=== PATIENT | male | born 1965 | race Two or more races ===

== ENCOUNTER 2024-08-15 10:53 | Inpatient (IN) | payer MEDICARE, MEDICAID ==
[~2024-08-15] VITALS: Ht 175.3 cm; Wt 151.6 kg
--- NOTE | 2024-08-15 11:56 | DVH ---
Procedure: XY CHEST PORTABLE 08/15/2024 11:31 AM Indication: sepsis Comparison: None TECHNIQUE: XY CHEST PORTABLE FINDINGS: Medical devices: None. Cardiomediastinal: The heart is normal in size. Pulmonary vasculature is within normal limits. Athero sclerotic calcification of the aortic arch noted. Lungs: No focal pulmonary opacity is seen. The costophrenic angles are clear. No pneumothorax. Bones/soft tissues: No acute abnormality is noted. IMPRESSION: 1. No acute cardiopulmonary disease.
[2024-08-15 12:03] LABS: Basophils # (auto) 0 10 ^3/uL (0-0.2); Basophils % (auto) 0.4 % (0.0-2.0); Eosinophils # (auto) 0.2 10 ^3/uL (0-0.8); Eosinophils % (auto) 2.4 % (0.0-7.0); Hematocrit 50.8 % (41.0-53.0); Hemoglobin 17.6 g/dL (13.5-17.5); Lymphocytes # (auto) 1.4 10 ^3/uL (0.4-5.4); Lymphocytes % (auto) 17.1 % (10.0-50.0); Mean Corpuscular Hemoglobin 29.5 pg (28.0-32.0); Mean Corpuscular Hgb Conc. 34.6 g/dL (32.0-36.0); Mean Corpuscular Volume 85.4 fL (80.0-100.0); Monocytes # (auto) 0.6 10 ^3/uL (0-1.3); Neutrophils # (auto) 5.8 10 ^3/uL (1.6-8.6); Neutrophils % (auto) 73.1 % (37.0-80.0); Nucleated Red Blood Cells % 0.1 %; Platelet Count (auto) 261 10^3/uL (140-450); Red Blood Cells 5.96 10^6/uL (4.5-5.90); Red Cell Distribution Width 14.1 % (11.8-14.3)
--- NOTE | 2024-08-15 12:03 | ED.PDOC ---
History of Present Illness HPI Comments 59 year old male presents to the ED with a chief complaint of wound check onset 2 weeks. Patient states he noticed wound to RT foot about 2 weeks ago, growing, red and swollen. Patient has home health nurse visit every 2 weeks, was advised to come to ED. Denies chest pain, shortness of breath, dizziness, nausea, vomiting, fever. No other symptoms or modifying factors present at this time. Chief Complaint: Wound Check Time Seen by MD: 11:20 Primary Care Provider: JESIKA Chambers Notes: Medications, Allergies Allergies: Coded Allergies: NO KNOWN ALLERGIES (Unverified , 08/15/24) Information Source: Patient, Relative Mode of Arrival: Ambulatory Severity: Moderate Timing: Weeks Duration: Since onset Prehospital treatment: None Family History Family History: Reviewed,noncontributory to illness, No family hx of Cancer, No family hx of DM, No family hx of Heart kristine, No family hx of HTN, No family hx ofKidney kristine, No family hx of Liver kristine, No family hx of Lung kristine, No family hx of Stroke Social History Smoker: Non-Smoker Alcohol: Denies ETOH Use Drugs: Denies Drug Use, Heroin Constitutional: denies: chills, diaphoresis, fatigue, fever, malaise, sweats, weakness, others EENTM: denies: blurred vision, double vision, ear bleeding, ear discharge, ear drainage, ear pain, ear ringing, eye pain, eye redness, hearing loss, mouth pain, mouth swelling, nasal discharge, nose bleeding, nose congestion, nose pain, photophobia, tearing, throat pain, throat swelling, voice changes, others Respiratory: denies: cough, hemoptysis, orthopnea, SOB at rest, shortness of breath, SOB with excertion, stridor, wheezing, others Cardiovascular: denies: chest pain, dizzy spells, diaphoresis, Dyspnea on exertion, edema, irregular heart beat, left arm pain, lightheadedness, palpitati ons, PND, syncope, others Gastrointestinal: denies: abdomen distended, abdominal pain, blood streaked bowels, constipated, diarrhea, dysphagia, difficulty swallowing, hematemesis, melena, nausea, poor appetite, poor fluid intake, rectal bleeding, rectal pain, vomiting, others Genitourinary: denies: burning, dysuria, flank pain, frequency, hematuria, incontinence, penile discharge, penile sore, pain, testicle pain, testicle swelling, urgency, others Neurological: denies: dizziness, fainting, headache, left sided numbness, left sided weakness, numbness, paresthesia, pre-existing deficit, right sided numbness, right sided weakness, seizure, speech problems, tingling, tremors, weakness, others Musculoskeletal: denies: back pain, gout, joint pain, joint swelling, muscle pain, muscle stiffness, neck pain, others Integumetry: reports: wounds (RT foot); denies: bruises, change in color, c hange in hair/nails, dryness, laceration, lesions, lumps, rash, others Allergic/Immunocompromised: denies: Difficulty Healing, Frequent Infections, Hives, Itching, others Hematologic/Lymphatic: denies: anemia, blood clots, easy bleeding, easy bruising, swollen glands, others Endocrine: denies: excessive hunger, excessive sweating, excessive thirst, excessive urination, flushing, intolerance to cold, intolerance to heat, unexplained weight gain, unexplained weight loss, others Psychiatric: denies: anxiety, bipolar disorder, depression, hopeless, panic disorder, schizophrenia, sleepless, suicidal, others All Other Systems: Reviewed and Negative Physical Exam General Appearance: No Apparent Distress, Normal HEENT: Normal ENT Inspection, Pharynx Normal, TMs Normal Neck: Full Range of Motion, Non-Tender, Normal, Normal Inspection Respiratory: Chest Non-Tender, Lungs Clear, No Accessory Muscle Use, No Respiratory Distress, Normal Breath Sounds Cardiovascular: No Edema, No JVD, No Murmur, No Gallop, Normal Peripheral Pulses, Regular Rate/Rhythm Breast Exam: Deferred Gastrointestinal: No Organomegaly, Non Tender, No Pulsatile Mass, Normal Bowel Sounds, Soft Genitalia: Deferred Pelvic: Deferred Rectal: Deferred Extremities: No calf tenderness, Normal capillary refill, Normal inspection, N ormal range of motion, Non-tender, No pedal edema Musculoskeletal : Apperance: Normal Neurologic: Alert, automobile brakes bonder II-XII nml as Tested, No Motor Deficits, Normal Affect, Normal Mood, No Sensory Deficits Cerebellar Function: Normal Reflexes: Normal Skin: Dry, Normal Color, Warm Lymphatic: No Adenopathy Was a procedure done? Was a procedure done?: No Differential Dx Considerations may include: Cellulitis, infectious etiology, electrolyte abnormality, sepsis X-Ray, Labs, Meds, VS Vital Signs Date Time Temp Pulse Resp B/P (MAP) Pulse Ox O2 Delivery O2 Flow Rate FiO2 08/15/24 12:15 81 14 95 Room Air* 0 21 08/15/24 11:59 98.0 80 18 155/93 (113) 96 98.0 08/15/24 11:13 98.4 66 16 95 98.4 08/15/24 11:13 66 18 95 Room Air 08/15/24 11:06 98.5 89 20 133/102 (112) 96 98.5 Lab Test 08/15/24 11:40 Range/Units White Blood Count 8.0 4.4-10.8 10^3/uL Red Blood Count 5.96 H 4.5-5.90 10^6/uL Hemoglobin 17.6 H 13.5-17.5 g/dL Hematocrit 50.8 41.0-53.0 % Mean Corpuscular Volume 85.4 80.0-100.0 fL Mean Corpuscular Hemoglobin 29.5 28.0-32.0 pg Mean Corpuscular Hemoglobin Concent 34.6 32.0-36.0 g/dL Red Cell Distribution Width 14.1 11.8-14.3 % Platelet Count 261 140-450 10^3/uL Mean Platelet Volume 8.0 6.9-10.8 fL Neutrophils (%) (Auto) 73.1 37.0-80.0 % Lymphocytes (%) (Auto) 17.1 10.0-50.0 % Monocytes (%) (Auto) 7.0 0.0-12.0 % Eosinophils (%) (Auto) 2.4 0.0-7.0 % Basophils (%) (Auto) 0.4 0.0-2.0 % Neutrophils # (Auto) 5.8 1.6-8.6 10 ^3/uL Lymphocytes # (Auto) 1.4 0.4-5.4 10 ^3/uL Monocytes # (Auto) 0.6 0-1.3 10 ^3/uL Eosinophils # (Auto) 0.2 0-0.8 10 ^3/uL Basophils # (Auto) 0 0-0.2 10 ^3/uL Nucleated Red Blood Cells 0.1 % Sodium Level 137 136-145 mmol/L Potassium Level 3.0 L 3.5-5.1 mmol/L Chloride Level 102 98-107 mmol/L Carbon Dioxide Level 26 20-31 mmol/L Anion Gap 9 5-15 Blood Urea Nitrogen 11 9-23 mg/dL Creatinine 0.93 0.700-1.30 mg/dL Glomerular Filtration Rate Calc 93 >90 mL/min BUN/Creatinine Ratio 11.8 10.0-20.0 Serum Glucose 103 74-106 mg/dL Lactic Acid Level 1.5 0.4-2.0 mmol/L Calcium Level 9.4 8.7-10.4 mg/dL Total Bilirubin 0.7 0.2-1.0 mg/dL Aspartate Amino Transferase (AST) 35 13-40 U/L Alanine Aminotransferase (ALT) 28 7-40 U/L Alkaline Phosphatase 100 46-116 U/L Troponin I High Sensitivity 7 </=54 ng/L Total Protein 8.2 5.7-8.2 g/dL Albumin 4.1 3.2-4.8 g/dL Current Medications Medications (Trade) Dose Ordered Sig/Carolee Route Start Time Stop Time Status Last Admin Sodium Chloride 3,000 ml @ 1,000 mls/hr Q3H ONCE IV 08/15/24 11:30 08/15/24 14:29 08/15/24 12:05 Ondansetron HCl (Zofran) 4 mg ONCE ONCE IV 08/15/24 11:30 08/15/24 11:31 DC 08/15/24 12:05 Vancomycin HCl 200 ml @ 200 mls/hr ONCE ONCE IV 08/15/24 11:30 08/15/24 12:29 DC 08/15/24 12:06 Cefepime HCl 50 ml @ 12.5 mls/hr ONCE ONCE IV 08/15/24 11:30 08/15/24 15:29 08/15/24 12:[address] [address] Ph: [phone] DIAGNOSTIC IMAGING Diagnostic Imaging Report : [id number] Signed PATIENT: REYES GONSALVESACCT: [id number] UNIT: [id number] : 1965 LOC: ER ROOM / BED: / AGE / SEX: 59 / M ADM STATUS: REG ER SERVICE 1122 ORDERING PHYSICIAN: ANGELA HERNÁNDEZ MD PROCEDURE(s): RFOOT - R FOOT 3 VIEW XRAY REASON: right foot pain ORDER NUMBER(s): [id number], ACCESSION NUMBER(s): [id number] CLINICAL INFORMATION: 59 years old, Male; right foot pain. TECHNIQUE: 3 views of the right foot were obtained. COMPARISON: None FINDINGS: No acute fracture or dislocation. Moderate arthritic changes of the 1st MTP joint with joint space narrowing and subchondral sclerosis. Likely prominent marginal osteophyte of the medial aspect of the base of the proximal phalanx. Prominent ossification along the expected course of the plantar fascia extending near its calcaneal attachment. Diffuse soft tissue swelling in the right foot. Adjacent soft tissues are unremarkable. IMPRESSION: 1. No evidence of acute bony abnormality. 2. Nonacute findings as described above. 3. Diffuse soft tissue swelling in the right foot. ATED BY: EZEQUIEL KAY DO DICTATED DATE/TIME: 08/15/24 120 SIGNED BY: EZEQUIEL KAY DO SIGNED DATE/TIME: 08/15/24 120 CC: [place] [address] Ph: [phone] DIAGNOSTIC IMAGING Diagnostic Imaging Report : [id number] Signed PATIENT: REYES GONSALVESACCT: [id number] UNIT: [id number] : 1965 LOC: ER ROOM / BED: / AGE / SEX: 59 / M ADM STATUS: REG ER SERVICE 1122 ORDERING PHYSICIAN: ANGELA HERNÁNDEZ MD PROCEDURE(s): CXRP - CHEST PORTABLE REASON: sepsis ORDER NUMBER(s): [id number], ACCESSION NUMBER(s): [id number] Procedure: XY CHEST PORTABLE 08/15/2024 11:31 AM Indication: sepsis Comparison: None TECHNIQUE: XY CHEST PORTABLE FINDINGS: Medical devices: None. Cardiomediastinal: The heart is normal in size. Pulmonary vasculature is within normal limits. Atherosclerotic calcification of the aortic arch noted. Lungs: No focal pulmonary opacity is seen. The costophrenic angles are clear. No pneumothorax. Bones/soft tissues: No acute abnormality is noted. IMPRESSION: 1. No acute cardiopulmonary disease. ATED BY: TAMMY GIRON MD DICTATED DATE/TIME: 08/15/24 1154 SIGNED BY: TAMMY GIRON MD SIGNED DATE/TIME: 08/15/24 1154 CC: Time of 1ST Reevaluation: 11:50 Reevaluation 1ST: Unchanged Patient Education/Counseling: Diagnosis, Treatment, Prognosis Family Education/Counseling: Diagnosis, Treatment, Prognosis Additional Information The following tests were ordered, and results were reviewed by me: XY R FOOT 3 VIEW, CBC, CMP, LA W/ REFLEX, TROP -x3, UA, BLOOD CULTURE, XY CHEST Additional Information was gathered from interviewing the following independent historians: daughter I reviewed and agreed with the following test results read by other providers: XY CHEST I discussed treatment and results with medical personnel and: patient, daughter Comprehensive systems review obtained and negative except for what is stated in the HPI. Departure 1 Departure Time of Disposition: 13:00 (Patient presents with a wound and cellulitis and concern for sepsis. Patient empirically started on antibiotics given IV fluids and we will admit patient for further workup and expert consult) Impression: Primary Impression: Wound of right foot Additional Impression: Cellulitis of right lower extremity Disposition: ADMITTED INPATIENT Admit to: Med Surg Condition: Serious Critical Care Note Critical Care Time?: Yes Critical care comment: Concern for sepsis Authorized and Performed by: Angela Hernández MD Total critical care time: Approximately 36 minutes Due to a high probability of clinically significant, life threatening deterioration, the patient required my highest level of preparedness to intervene emergently and I personally spent this critical care time directly and personally managing the patient. This critical care time included obtaining a history; examining the patient; pulse oximetry; ordering and review of studies; arranging urgent treatment with development of a management plan; evaluation of patient's response to treatment; frequent reassessment; and, discussions with other providers. This critical care time was performed to assess and manage the high probability of imminent, life-threatening deterioration that could result in multi-organ failure. It was exclusive of separately billable procedures and treating other patients and teaching time. Please see my other sections and the rest of the note for further information on patient assessment and treatment. Stability Stability form required: No I personally scribed for ANGELA HERNÁNDEZ MD ([facility] on 08/15/24 at 12:03. Electronically submitted by Laurie Alcantara ([email or web address]). I personally scribed for ANGELA HERNÁNEDZ MD ([facility] on 08/15/24 at 12:04. Electronically submitted by Laurie Alcantara ([email or web address]). I personally scribed for ANGELA HERNÁNDEZ MD ([facility] on 08/15/24 at 12:55. Electronically submitted by Laurie Alcantara ([email or web address]). ANGELA HERNÁNDEZ MD August 15, 2024 12:03
--- NOTE | 2024-08-15 12:03 | DVH ---
CLINICAL INFORMATION: 59 years old, Male; right foot pain. TECHNIQUE: 3 views of the right foot were obtained. COMPARISON: None FINDINGS: No acute fracture or dislocation. Moderate arthritic changes of the 1st MTP joint with join t space narrowing and subchondral sclerosis. Likely prominent marginal osteophyte of the medial aspec t of the base of the proximal phalanx. Prominent ossification along the expected course of the planta r fascia extending near its calcaneal attachment. Diffuse soft tissue swelling in the right foot. Adj acent soft tissues are unremarkable. IMPRESSION: 1. No evidence of acute bony abnormality. 2. Nonacute findings as described above. 3. Diffuse soft tissue swelling in the right foot.
[2024-08-15] MEDS: ONDANSETRON HCL 4 MG/2 ML VIAL IV ONE ×2 (12:05→13:55)
[2024-08-15] MEDS: SODIUM CHLORIDE 0.9% 3,000 ML IV ONE (12:05)
[2024-08-15] MEDS: VANCOMYCIN 1GM/200ML PM 200 ML IV ONE (12:06)
[2024-08-15] MEDS: CEFEPIME 2GM/50ML NS 50 ML IV ONE (12:06)
[2024-08-15 12:15] VITALS: PULSE 81; RESP 14; O2SAT 95
[2024-08-15 12:17] LABS: Alanine Aminotransferase 28 U/L (7-40); Albumin 4.1 g/dL (3.2-4.8); Alkaline Phosphatase 100 U/L (46-116); Anion Gap 9 (5-15); Aspartate Aminotransferase 35 U/L (13-40); BUN/Creatinine Ratio 11.8 (10.0-20.0); Blood Urea Nitrogen 11 mg/dL (9-23); Calcium 9.4 mg/dL (8.7-10.4); Carbon Dioxide 26 mmol/L (20-31); Chloride 102 mmol/L (98-107); Glucose 103 mg/dL (74-106); Sodium 137 mmol/L (136-145); Total Protein 8.2 g/dL (5.7-8.2)
[2024-08-15 12:18] LABS: Bilirubin, Total 0.7 mg/dL (0.2-1.0)
[2024-08-15] MEDS: MORPHINE SULFATE 4 MG/ML SYR/VIAL IV ONE (13:56)
[2024-08-15 14:26] LABS: Urine Bacteria None Seen /hpf (None Seen)
[2024-08-15 14:27] LABS: Urine Blood Negative /uL (Negative); Urine Clarity Clear (Clear); Urine Color Light-Yellow (Yellow); Urine Protein, UAD Negative (Negative); Urine Specific Gravity 1.014 (1.001-1.035); Urine Squamous Epithelial Cell None Seen /hpf (<5); Urine Urobilinogen Normal (Negative); Urine WBC 1 /HPF (0-3); Urine pH 6.5 (5.0-9.0)
[2024-08-15 21:56] LABS: Magnesium 2.1 mg/dL (1.6-2.6)
[2024-08-15 21:57] LABS: Blood Alcohol < 3.0 mg/dL (<10)
[2024-08-15] MEDS ORDERED: VANCOMYCIN PER PHARMACY 0 MG IV SCH (22:00)
[2024-08-15] MEDS ORDERED: cefTRIAXone 1GM/50ML D5W 50 ML IV ONE ×2 (22:00→23:00)
--- NOTE | 2024-08-15 22:18 | DVH ---
Bilateral lower extremity venous duplex Clinical History: BL Leg swelling Comparison: None Technique: Duplex Doppler evaluation of the deep venous systems of both lower extremities from the common femora l veins to the popliteal veins including color Doppler and spectral/pulsed waveform analysis was perf ormed. Findings: RIGHT SIDE: The common femoral vein demonstrates appropriate compressibility and waveform variability. There is compressibility/patency of the great saphenous vein at the proximal thigh. The femoral vein demonstrates appropriate compressibility and waveform variability. The deep femoral vein demonstrates appropriate compressibility and waveform variability. The popliteal vein demonstrates appropriate compressibility and waveform variability. There is normal compressibility at the tibioperoneal trunk. LEFT SIDE: The common femoral vein demonstrates appropriate compressibility and waveform variability. There is compressibility/patency of the great saphenous vein at the proximal thigh. The femoral vein demonstrates appropriate compressibility and waveform variability. The deep femoral vein demonstrates appropriate compressibility and waveform variability. The popliteal vein demonstrates appropriate compressibility and waveform variability. There is normal compressibility at the tibioperoneal trunk. Impression: 1. No right or left femoropopliteal venous thrombosis.
[2024-08-15 22:23] LABS: Opiate Scree,Urine Neg (NEGATIVE)
[2024-08-15 22:27] LABS: Amphetamine Screen, Urine Neg (NEGATIVE); Barbiturate Scree,Urine Neg (NEGATIVE); Benzodiazephine Screen, Urine Neg (NEGATIVE); Cannabinoid Screen, Urine Neg (NEGATIVE); Cocaine Screen, Urine Neg (NEGATIVE); Phencyclidine Screen, Urine Neg (NEGATIVE)
[2024-08-15] MEDS: SODIUM CHLOR 0.9% PF (SALINE LOCK) 10ML VIAL/SYR IV SCH (22:29)
[2024-08-15] MEDS: POTASSIUM EFFERVESENT TAB 25 MEQ PO ONE (22:30)
--- NOTE | 2024-08-15 22:30 | DVHHP2 ---
History of Present Illness History of Present Illness Patient is 59 years old male with a past history of hypertension, left lower leg asthma came with a right foot wound for 2 weeks. Patient reported he noted right foot ulcer 2 weeks before which got worse and his home health nurse for left foot wound ask him to come to the ER. Red swollen warm tender to touch. Reported pain in the right foot attempts 10/10. On Further discussion patient reported he has left leg swelling with ulcer for last 1 year for which he has a home health nurse come check on him twice a week. Patient denied any chest pain or shortness of breath dysuria, cough or diarrhea. Lab workup revealed potassium 3.0, hemoglobin 70.6. Urinalysis negative for UTI, CXR negative for acute cardiopulmonary disease, right foot x-ray diffuse soft tissue swelling. Doppler study of the bilateral lower extremity negative for DVT. UDS negative. urinalysis negative for UTI. Past Medical History Hypertension Past Surgical History None Family History None Past Social History Denies smoking, ex alcoholic, ex substance abuser. Meds amlodipine 10 mg p.o. daily, losartan-hydrochlorothiazide 50 x 12.5, carvedilol 6.25 mg p.o. b.i.d., folic acid, potassium supplement Review of Systems Review of Systems Allergy -NKDA Patient was seen today at the bedside. Cardiovascular- deny acute chest pain or shortness of breath or cough or palpitation Respiratory denies cough or short of breath or wheezing Gastrointestinal- denies any rectal bleeding, nausea or vomiting Neurological- denies acute dysarthria, dysphagia, change in vision Psychiatry- denies depression or SI or HI Skin- denies acute rash or purpura Allergies: Coded Allergies: NO KNOWN ALLERGIES (Unverified , 08/15/24) Medications Current Medications Medications Dose Ordered Sig/Carolee Route Start Time Stop Time Status Last Admin Dose Admin Sodium Chloride 10 ml Q8HR IV 08/15/24 22:00 Enoxaparin Sodium 40 mg DAILY SC 08/16/24 10:00 Acetaminophen 650 mg Q6HP PRN PO 08/15/24 21:45 Ceftriaxone Sodium 50 ml @ 100 mls/hr DAILY@09 IV 08/16/24 09:00 Vancomycin HCl 0 ml @ 0 mls/hr UD IV 08/15/24 22:00 UNV Exam Vital Signs Vital Signs Date Time Temp Pulse Resp B/P (MAP) Pulse Ox O2 Delivery O2 Flow Rate FiO2 08/15/24 19:36 97.9 75 20 126/83 (97) 96 97.9 08/15/24 12:15 Room Air* 0 21 Exam General examination- , alert, oriented, convert HEENT- PEERLA, no acute nasal discharge Cardiovascular- S1-S2 audible, rate and rhythm regular, no murmur Respiratory- CTAB, no wheeze or rhonchi Gastrointestinal-nontender, bowel sound+. Nondistended Musculoskeletal-no acute joint swelling or tenderness or redness Lower extremity- bilateral lower extremity swelling, stage IV ulcer on the dorsum of Right foot and Ulcer on theback of left foot Neurological- cranial nerves intact, no acute dysarthria or dysphagia Psychiatry- denies depression or SI or HI Skin- no acute rash or purpura Labs/Xrays Labs Test 08/15/24 14:47 08/15/24 14:03 08/15/24 11:40 Range/Units Troponin I High Sensitivity 7 </=54 ng/L Urine Color Light-yellow Yellow Urine Clarity Clear Clear Urine pH 6.5 5.0-9.0 Urine Specific [place] 1.014 1.001-1.035 Urine Protein Negative Negative Urine Ketones Negative Negative Urine Blood Negative Negative /uL Urine Nitrite Negative Negative Urine Bilirubin Negative Negative Urine Urobilinogen Normal Negative mg/dL Urine Leukocyte Esterase Negative Negative /uL Urine RBC 3 0 - 3 /hpf Urine Microscopic WBC 1 0-3 /HPF Urine Squamous Epithelial Cells None seen <5 /hpf Urine Bacteria None seen None Seen /hpf Urine Glucose Normal Normal mg/dL Urine Opiates Screen Neg NEGATIVE Urine Fentanyl Screen Neg NEGATIVE Urine Barbiturates Screen Neg NEGATIVE Urine Phencyclidine Screen Neg NEGATIVE Urine Amphetamines Screen Neg NEGATIVE Urine Benzodiazepines Screen Neg NEGATIVE Urine Cocaine Screen Neg NEGATIVE Urine Cannabinoids Screen Neg NEGATIVE White Blood Count 8.0 4.4-10.8 10^3/uL Red Blood Count 5.96 H 4.5-5.90 10^6/uL Hemoglobin 17.6 H 13.5-17.5 g/dL Hematocrit 50.8 41.0-53.0 % Mean Corpuscular Volume 85.4 80.0-100.0 fL Mean Corpuscular Hemoglobin 29.5 28.0-32.0 pg Mean Corpuscular Hemoglobin Concent 34.6 32.0-36.0 g/dL Red Cell Distribution Width 14.1 11.8-14.3 % Platelet Count 261 140-450 10^3/uL Mean Platelet Volume 8.0 6.9-10.8 fL Neutrophils (%) (Auto) 73.1 37.0-80.0 % Lymphocytes (%) (Auto) 17.1 10.0-50.0 % Monocytes (%) (Auto) 7.0 0.0-12.0 % Eosinophils (%) (Auto) 2.4 0.0-7.0 % Basophils (%) (Auto) 0.4 0.0-2.0 % Neutrophils # (Auto) 5.8 1.6-8.6 10 ^3/uL Lymphocytes # (Auto) 1.4 0.4-5.4 10 ^3/uL Monocytes # (Auto) 0.6 0-1.3 10 ^3/uL Eosinophils # (Auto) 0.2 0-0.8 10 ^3/uL Basophils # (Auto) 0 0-0.2 10 ^3/uL Nucleated Red Blood Cells 0.1 % Sodium Level 137 136-145 mmol/L Potassium Level 3.0 L 3.5-5.1 mmol/L Chloride Level 102 98-107 mmol/L Carbon Dioxide Level 26 20-31 mmol/L Anion Gap 9 5-15 Blood Urea Nitrogen 11 9-23 mg/dL Creatinine 0.93 0.700-1.30 mg/dL Glomerular Filtration Rate Calc 93 >90 mL/min BUN/Creatinine Ratio 11.8 10.0-20.0 Serum Glucose 103 74-106 mg/dL Hemoglobin A1c 5.2 <5.7 % A1C Lactic Acid Level 1.5 0.4-2.0 mmol/L Calcium Level 9.4 8.7-10.4 mg/dL Magnesium Level 2.1 1.6-2.6 mg/dL Total Bilirubin 0.7 0.2-1.0 mg/dL Aspartate Amino Transferase (AST) 35 13-40 U/L Alanine Aminotransferase (ALT) 28 7-40 U/L Alkaline Phosphatase 100 46-116 U/L Total Protein 8.2 5.7-8.2 g/dL Albumin 4.1 3.2-4.8 g/dL Vitamin D 25-Hydroxy 20.6 L 30.0-100 ng/mL Thyroid Stimulating Hormone (TSH) 3.08 0.55-4.78 uIU/mL Plasma/Serum Blood Alcohol < 3.0 <10 mg/dL Assessment/Plan Assessment/Plan Assessment and plan Bilateral lower extremity cellulitis Bilateral lower extremity ulcer Rule out acute osteomyelitis Bilateral lower extremity swelling Hypertension Hypokalemia Vitamin-D deficiency Morbid Obesity UDS negative Urinalysis negative for UTI X-ray right foot -diffuse soft tissue swelling Plan Ordered CT scan of the right foot to rule out osteomyelitis Ordered clindamycin IV Losartan 50 mg p.o. daily Ordered supplemented potassium Ordered pain medication Ordered wound consult Ordered podiatry consult Ordered blood culture and wound culture Patient is counseled about the effect of obesity on health, weight reduction, healthy diet, physical activity Goals of care, Code status ; discussed with >15 minutes PUD prophylaxis: Pantoprazole DVT prophylaxis: Lovenox Plan discussed with Dr. Ceja , nursing staff, Total time spent on patient evaluation, chart review, assessment and plan, discussion discussion >35 minutes Plan discussed with: Patient, Other (RN) My Orders Orders - EZEQUIEL LOWE RESIDENT Procedure Category Date Status Time Admit ADMIT 08/15/24 Transmitted 21:35 Code Status CODE 08/15/24 Transmitted 21:35 Sodium Chloride Lock PHA 08/15/24 In Process (Saline Lock Ns) 22:00 Enoxaparin Sodium PHA 08/16/24 In Process (Lovenox) 10:00 Complete Blood Count LAB 08/16/24 Verified 04:00 Comprehensive LAB 08/16/24 Verified Metabolic Panel 04:00 Cardiac DIET 08/16/24 Transmitted Diet-2gna,Lofat,Lochol Breakfast Acetaminophen Tablet PHA 08/15/24 In Process (Tylenol Tablet) 21:45 Electrocardigram EKG 08/15/24 Logged 21:37 Bilat Lower Dvt US 08/15/24 Resulted 21:39 * Wound Consult CONS 08/15/24 Transmitted *Podiatry Consult CONS 08/15/24 Transmitted Musson([facility]) 21:41 Wound Culture W/ Gs LAURA 08/15/24 Logged 21:42 Sodium Chloride 0.9% PHA 08/15/24 In Process 21:45 Vitamin B12 LAB 08/15/24 In Process 21:45 Folate (Folic Acid) LAB 08/15/24 In Process 21:45 Ceftriaxone 1gm/50ml PHA 08/16/24 In Process D5w (Rocephin) 09:00 Vancomycin Per PHA 08/15/24 Pending Pharmacy 22:00 Vancomycin 1gm/200ml PHA 08/15/24 In Process Pm 22:00 Vancomycin 1gm/200ml PHA 08/16/24 In Process Pm 06:00 Ceftriaxone 1gm/50ml PHA 08/15/24 In Process D5w (Rocephin) 23:00 Date of Service: August 15, 2024 Billing Provider: UZAIR CEJA MD Common Visit Codes: 50889-[id number] INP/OBS CARE (HIGH) Secondary Visit Codes: 08516-[id number] CARE PLAN 30 MINUTES EZEQUIEL LOWE RESIDENT August 15, 2024 22:30
[2024-08-15 22:50] VITALS: PULSE 89; RESP 18; O2SAT 98
[2024-08-15 23:42] VITALS: BP 134/100; PULSE 85; RESP 16; TEMP 98.5; O2SAT 95
[2024-08-15 23:46] VITALS: BP 134/100; PULSE 85; PULSE 86; RESP 16; TEMP 98.5; O2SAT 95
[2024-08-16] VITALS (7 sets, daily range): BP systolic 116–153; BP diastolic 60–95; PULSE 51–94; RESP 18–20; TEMP 98.1–98.7; O2SAT 93–96
[2024-08-16] MEDS: CLINDAMYCIN 300MG IV 50 ML IV ONE (00:22)
[2024-08-16] MEDS: SODIUM CHLORIDE 0.9% 1,000 ML IV ONE (00:23)
[2024-08-16] MEDS: LOSARTAN POTASSIUM 50 MG TAB PO ONE (00:39)
[2024-08-16] MEDS: ACETAMINOPHEN 325 MG TAB PO PRN (00:50)
[2024-08-16] MEDS ORDERED: ACET-6 PO (01:13)
[2024-08-16] MEDS ORDERED: AMLO1TAB23 PO (01:13)
[2024-08-16] MEDS ORDERED: POTA-180 PO (01:13)
[2024-08-16] MEDS ORDERED: CARV6.2517 PO (01:13)
[2024-08-16] MEDS ORDERED: FOLI-119 PO (01:13)
[2024-08-16] MEDS ORDERED: LOSA100T33 (01:13)
[2024-08-16] MEDS: CLINDAMYCIN 300MG IV 50 ML IV SCH (06:09)
[2024-08-16 06:17] LABS: Basophils # (auto) 0.1 10 ^3/uL (0-0.2); Basophils % (auto) 0.8 % (0.0-2.0); Eosinophils # (auto) 0.4 10 ^3/uL (0-0.8); Eosinophils % (auto) 4.2 % (0.0-7.0); Hematocrit 45.8 % (41.0-53.0); Hemoglobin 15.6 g/dL (13.5-17.5); Lymphocytes # (auto) 1.4 10 ^3/uL (0.4-5.4); Lymphocytes % (auto) 16.9 % (10.0-50.0); Mean Corpuscular Hemoglobin 29.3 pg (28.0-32.0); Mean Corpuscular Hgb Conc. 34.2 g/dL (32.0-36.0); Mean Corpuscular Volume 85.9 fL (80.0-100.0); Monocytes # (auto) 0.7 10 ^3/uL (0-1.3); Neutrophils # (auto) 5.9 10 ^3/uL (1.6-8.6); Neutrophils % (auto) 70.1 % (37.0-80.0); Nucleated Red Blood Cells % 0.1 %; Platelet Count (auto) 221 10^3/uL (140-450); Red Blood Cells 5.33 10^6/uL (4.5-5.90); Red Cell Distribution Width 13.6 % (11.8-14.3); White Blood Cell 8.4 10^3/uL (4.4-10.8)
[2024-08-16] MEDS: PANTOPRAZOLE 40 MG TAB PO SCH (06:18)
[2024-08-16] MEDS: hydrALAZINE HCL 20 MG/ML VL IV ONE (06:18)
[2024-08-16 06:41] LABS: Alanine Aminotransferase 25 U/L (7-40); Albumin 3.4 g/dL (3.2-4.8); Alkaline Phosphatase 84 U/L (46-116); Anion Gap 10 (5-15); Aspartate Aminotransferase 35 U/L (13-40); BUN/Creatinine Ratio 12.9 (10.0-20.0); Blood Urea Nitrogen 13 mg/dL (9-23); Carbon Dioxide 28 mmol/L (20-31); Chloride 102 mmol/L (98-107); Glucose 95 mg/dL (74-106); Sodium 140 mmol/L (136-145); Total Protein 6.9 g/dL (5.7-8.2)
[2024-08-16 06:42] LABS: Bilirubin, Total 0.7 mg/dL (0.2-1.0)
[2024-08-16] MEDS ORDERED: VANCOMYCIN PER PHARMACY 0 MG IV SCH (06:45)
[2024-08-16] MEDS ORDERED: AMPICILLIN & SULBACTAM SODIUM 3 GM in SODIUM CHL 0.9% 100 ML IV SCH (06:45)
[2024-08-16 07:05] LABS: Calcium 8.5 mg/dL (8.7-10.4); Potassium 3.1 mmol/L (3.5-5.1)
--- NOTE | 2024-08-16 07:25 | DVHPN2 ---
Progress Note - Dictate Date Seen: August 16, 2024 Medical Necessity Reason Pt with a Central, PICC or Fol: No vital signs Vital Sign Date Time Temp Pulse Resp B/P (MAP) Pulse Ox O2 Delivery O2 Flow Rate FiO2 08/16/24 06:18 143/95 08/16/24 05:00 98.1 84 19 95 98.1 08/15/24 23:46 Room Air* 0 21 Total Intake and Output 08/15/24 08/15/24 08/16/24 15:00 23:00 07:00 Intake Total 770 ml Balance 770 ml medications Current Medications Medications Dose Ordered Sig/Carolee Route Start Time Stop Time Status Last Admin Dose Admin Sodium Chloride 10 ml Q8HR IV 08/15/24 22:00 08/16/24 06:09 10 ML Enoxaparin Sodium 40 mg DAILY SC 08/16/24 10:00 Acetaminophen 650 mg Q6HP PRN PO 08/15/24 21:45 08/16/24 00:50 650 MG Saccharomyces Boulardii 250 mg BID PO 08/16/24 10:00 Ergocalciferol 50,000 unit Q7D PO 08/16/24 10:00 Losartan Potassium 50 mg DAILY PO 08/17/24 10:00 Pantoprazole Sodium 40 mg DAILY@0600 PO 08/16/24 06:00 08/16/24 06:18 40 MG Ampicillin Sodium/ Sulbactam Sodium 3 gm/Sodium Chloride 100 ml @ 100 mls/hr Q6H IV 08/16/24 06:45 Vancomycin HCl 0 ml @ 0 mls/hr UD IV 08/16/24 06:45 UNV objective General Appearance: alert, no distress HEENT: EOMI, PERRLA, normal external inspect of ears, no icterus, no nasal drainage Neck: no carotid bruit, no jugular venous distention (JVD), no lymphadenopathy Chest: normal thorax Respiratory: clear to auscultation, normal air movement Cardiovascular: regular rate and rhythm, no diastolic murmur, no jugular venous distention (JVD), no rub, no systolic murmur Abdominal: soft, no hepatomegaly, no mass, no splenomegaly, no tenderness Genitourinary: grossly normal external Musculoskeletal: no joint tenderness, no swelling Extremities: normal pulses, no calf tenderness, no clubbing, no cyanosis, no edema Skin: no bruising, no jaundice, no rash Neurological: alert, No focal deficit laboratory and microbiology Laboratory Tests 08/16/24 05:09 Test 08/16/24 05:09 Range/Units Serum Glucose 95 74-106 mg/dL Problem List 1. Bilateral lower extremity cellulitis CT of right foot, podiatry consult, wound care consult, arterial ultrasound of bilateral lower extremities 2. Morbid obesity Diet education 3. Benign essential hypertension Cardiac diet, antihypertensives 4. Nonhealing right foot wound Wound care consult, podiatry consult Assessment/Plan Subjective: Patient is awake and alert. Objective: Patient was admitted for right foot wound. Denies any history of diabetes. Patient has cellulitis extending up to the knee. States wound has been non- healing for two years. Plan: Podiatry consult pending. Wound care consult for evaluation. Obtain arterial Doppler. Plan discussed with: Patient, Other MILA SHERWOOD NP August 16, 2024 07:25
--- NOTE | 2024-08-16 07:39 | DVH ---
CT CT R FOOT WO CONTRAST INDICATION: RULE OUT OSTEOMYELITIS EXAM DATE: 08/16/2024 07:00 AM COMPARISON: None RADIATION DOSE: CTDIvol: 7 mGy, DLP: 427 mGy*cm PROCEDURE: Helical CT images were obtained of the right foot without intravenous contrast. Sagittal and coronal reconstructions are provided. ADDITIONAL IMAGES: None FINDINGS: BONES: No fracture.Normal anatomic alignment.] JOINT SPACES: Maintained. No joint effusion. SOFT TISSUES: [id number] forefoot soft tissue edema. VESSELS: unremarkable. IMPRESSION: No osseous erosive changes to suggest for osteomylitis. [id number] forefoot soft tissue edema.
[2024-08-16] MEDS: ERGOCALCIFEROL 50,000 UNIT(1.25MG) CAP PO SCH (08:36)
[2024-08-16] MEDS: FLORASTOR (S. BOULARDII) 250 MG CAP PO SCH (08:37)
[2024-08-16] MEDS: ENOXAPARIN SOD 40 MG/0.4 ML SYRINGE SC SCH (08:37)
[2024-08-16] MEDS ORDERED: cefTRIAXone 1GM/50ML D5W 50 ML IV SCH (09:00)
[2024-08-16] MEDS: AMPICILLIN & SULBACTAM SODIUM 3 GM in SODIUM CHL 0.9% 100 ML IV SCH (10:00)
[2024-08-16] MEDS ORDERED: FLORASTOR (S. BOULARDII) 250 MG CAP PO SCH (10:00)
[2024-08-16 11:00] LABS: Opiate Scree,Urine Neg (NEGATIVE)
[2024-08-16 11:02] LABS: Amphetamine Screen, Urine Neg (NEGATIVE); Barbiturate Scree,Urine Neg (NEGATIVE); Benzodiazephine Screen, Urine Neg (NEGATIVE); Cannabinoid Screen, Urine Neg (NEGATIVE); Cocaine Screen, Urine Neg (NEGATIVE); Phencyclidine Screen, Urine Neg (NEGATIVE)
--- NOTE | 2024-08-16 13:40 | DVH ---
Lower Extremity Arterial Duplex Date: 08/16/2024 01:00 PM Clinical History: wounds Comparison: None Images submitted: Findings: Duplex Doppler evaluation including color Doppler and spectral/pulsed waveform analysis of the lower extremity arteries was performed. RIGHT: No significant atheroscrotic disease is identified. Peak systolic velocities are as follows: EIA cm/s PC INSTALLATION ENGINEER 115 cm/s Deep femoral 78 cm/s SFA proximal 84 cm/s SFA mid-portion 114 cm/s SFA distal 71 cm/s Popliteal 60 cm/s Posterior tibial 75 cm/s [at proximal, mid, and distal calf levels, respectively] Anterior tibial cm/s [at proximal, mid, and distal calf levels, respectively] Peroneal cm/s Dorsalis pedis 109 cm/s The waveforms are triphasic with diastolic flow. LEFT: Peak systolic velocities are as follows: EIA cm/s PC INSTALLATION ENGINEER 126 cm/s Deep femoral 70 cm/s SFA proximal 121 cm/s SFA mid-portion 133 cm/s SFA distal 134 cm/s Popliteal 157 cm/s Posterior tibial 86 cm/s [at proximal, mid, and distal calf levels, respectively] Anterior tibial cm/s [at proximal, mid, and distal calf levels, respectively] Peroneal cm/s Dorsalis pedis 122 cm/s The waveforms are triphasic with diastolic flow. REFERENCE VALUES, [facility]) vascular Imaging Lab Criteria: Peak systolic velocity ranges (in cm/sec) are as follows: <150 cm/s - <20 % stenosis 150-200 cm/s - 20-49% stenosis 200-300 cm/s - 50-75% stenosis >300 cm/s -> 75% stenosis IMPRESSION: 1. There is no evidence for peripheral vascular insufficiency in the right lower extremity. 2. There is no evidence for peripheral vascular insufficiency in the left lower extremity. 3. No significant focal stenosis is identified. 4. END IMPRESSION:
[2024-08-16] MEDS: VANCOMYCIN 1.75GM/350ML 350 ML IV SCH (14:00)
[2024-08-16] MEDS ORDERED: CARVEDILOL 3.125 MG TAB PO SCH (14:12)
[2024-08-16] MEDS: FOLIC ACID 1 MG TAB PO SCH (14:44)
[2024-08-16] MEDS: amLODIPine BESYLATE 5 MG TAB PO SCH (14:45)
--- NOTE | 2024-08-16 20:27 | DVHSR ---
APPROVED REPORT EXAM: Two-dimensional and M-mode echocardiogram with Doppler and color Doppler. Blood Pressure: 143/95 mmHg INDICATION Bilateral leg swelling Rule out CHF RISK FACTORS Obesity: Height: 5'9", Weight: 337 DIMENSIONS LVDd4.7 (3.8-5.7cm)LA (2D)4.3 (1.9-4.0cm)Aortic Root4.0 (2.0-3.7cm) LVDs3.2 (2.5-4.0cm)LA (MM) (1.9-4.0cm)Aortic Cusp Exc2.2 (1.5-2.0cm) EF (%) 60.0 (55-70%)Rt. Atrium4.2 (1.9-4.0cm)Asc. Aorta cm IVSd1.2 (0.7-1.1cm)RV (D) (1.8-2.4cm) PWd1.1 (0.7-1.1cm) Mitral Valve MitralMitral Stenosis E wave0.82m/sMV Mean GR.mmHg A wave1.22m/sMV Peak GR.mmHg E/A ratio0.72D MVAcm2 DECEL [id number] 1/2 Timems Aortic Valve Aortic ValveAortic Stenosis V11.28m/Cassia Mean GR.6mmHg V21.68m/Cassia Peak GR.11mmHg LVOT Diameter2.4 (1.8-2.4cm)Doppler AVA3.45cm2 Pulmonic Valve V20.96m/s Tricuspid Valve TR Velocity2.59m/s [id number] Other Information Technically limited study due to body habitus. Conclusion Technically difficult study. Sinus rhyhtm. Aortic root elargement, Valves are normal LVEF is normal at 65% with nromal RV function. Trace AI No masses or vegetations No PE
[2024-08-17] VITALS (7 sets, daily range): BP systolic 121–144; BP diastolic 62–92; PULSE 41–80; RESP 18–20; TEMP 97.5–98.4; O2SAT 94–95
[2024-08-17] MEDS: AMPICILLIN & SULBACTAM SODIUM 3 GM in SODIUM CHL 0.9% 100 ML IV SCH (01:13)
[2024-08-17] MEDS: VANCOMYCIN 1 GM/200 ML IV ONE (02:30)
[2024-08-17 07:32] LABS: Basophils # (auto) 0.1 10 ^3/uL (0-0.2); Basophils % (auto) 0.8 % (0.0-2.0); Eosinophils # (auto) 0.3 10 ^3/uL (0-0.8); Eosinophils % (auto) 4.5 % (0.0-7.0); Hematocrit 46.9 % (41.0-53.0); Hemoglobin 16.3 g/dL (13.5-17.5); Lymphocytes # (auto) 1.4 10 ^3/uL (0.4-5.4); Lymphocytes % (auto) 20.1 % (10.0-50.0); Mean Corpuscular Hemoglobin 29.8 pg (28.0-32.0); Mean Corpuscular Hgb Conc. 34.8 g/dL (32.0-36.0); Mean Corpuscular Volume 85.6 fL (80.0-100.0); Monocytes # (auto) 0.5 10 ^3/uL (0-1.3); Monocytes % (auto) 6.9 % (0.0-12.0); Neutrophils # (auto) 4.6 10 ^3/uL (1.6-8.6); Neutrophils % (auto) 67.7 % (37.0-80.0); Nucleated Red Blood Cells % 0.2 %; Platelet Count (auto) 209 10^3/uL (140-450); Red Blood Cells 5.48 10^6/uL (4.5-5.90); Red Cell Distribution Width 13.6 % (11.8-14.3); White Blood Cell 6.8 10^3/uL (4.4-10.8)
--- NOTE | 2024-08-17 07:51 | DVHPN2 ---
Progress Note - Dictate Date Seen: August 17, 2024 Medical Necessity Reason Pt with a Central, PICC or Fol: No vital signs Vital Sign Date Time Temp Pulse Resp B/P (MAP) Pulse Ox O2 Delivery O2 Flow Rate FiO2 08/17/24 05:00 97.5 76 20 144/84 (104) 94 97.5 08/16/24 20:00 Room Air* 0 21 Total Intake and Output 08/16/24 08/16/24 08/17/24 15:00 23:00 07:00 Intake Total 926 ml 340 ml 950 ml Output Total 200 ml 1565 ml Balance 926 ml 140 ml -615 ml medications Current Medications Medications Dose Ordered Sig/Carolee Route Start Time Stop Time Status Last Admin Dose Admin Sodium Chloride 10 ml Q8HR IV 08/15/24 22:00 08/17/24 06:04 10 ML Enoxaparin Sodium 40 mg DAILY SC 08/16/24 10:00 08/16/24 08:37 40 MG Acetaminophen 650 mg Q6HP PRN PO 08/15/24 21:45 08/17/24 01:19 650 MG Saccharomyces Boulardii 250 mg BID PO 08/16/24 10:00 08/16/24 22:00 250 MG Ergocalciferol 50,000 unit Q7D PO 08/16/24 10:00 08/16/24 08:36 50,000 UNIT Losartan Potassium 50 mg DAILY PO 08/17/24 10:00 Pantoprazole Sodium 40 mg DAILY@0600 PO 08/16/24 06:00 08/17/24 06:04 40 MG Vancomycin HCl 0 ml @ 0 mls/hr UD IV 08/16/24 06:45 Vancomycin HCl 350 ml @ 233.333 mls/hr Q12H IV 08/16/24 14:00 08/17/24 02:28 233.333 MLS/HR Amlodipine Besylate 10 mg DAILY PO 08/16/24 13:33 08/16/24 14:45 10 MG Folic Acid 1 mg DAILY PO 08/16/24 13:32 08/16/24 14:44 1 MG Potassium Chloride 20 meq DAILY PO 08/17/24 10:00 Ampicillin Sodium/ Sulbactam Sodium 3 gm/Sodium Chloride 100 ml @ 100 mls/hr Q6H IV 08/17/24 01:15 08/17/24 06:04 100 MLS/HR objective General Appearance: alert, no distress HEENT: EOMI, PERRLA, normal external inspect of ears, no icterus, no nasal drainage Neck: no carotid bruit, no jugular venous distention (JVD), no lymphadenopathy Chest: normal thorax Respiratory: clear to auscultation, normal air movement Cardiovascular: regular rate and rhythm, no diastolic murmur, no jugular venous distention (JVD), no rub, no systolic murmur Abdominal: soft, no hepatomegaly, no mass, no splenomegaly, no tenderness Genitourinary: grossly normal external Musculoskeletal: no joint tenderness, no swelling Extremities: normal pulses, no calf tenderness, no clubbing, no cyanosis, no edema Skin: no bruising, no jaundice, no rash Neurological: alert, No focal deficit laboratory and microbiology Laboratory Tests 08/17/24 06:48 08/16/24 05:09 Test 08/16/24 05:09 Range/Units Serum Glucose 95 74-106 mg/dL Problem List 1. Bilateral lower extremity cellulitis CT of right foot, podiatry consult, wound care consult, arterial ultrasound of bilateral lower extremities 2. Morbid obesity Diet education 3. Benign essential hypertension Cardiac diet, antihypertensives 4. Nonhealing right foot wound Wound care consult, podiatry consult Assessment/Plan Subjective Patient is awake and alert. Objective Patient was admitted for worsening right foot infection. Patient does not have any history of diabetes. Patient states he has had these wounds for over 1 year. Patient has a foul odor. He was seen by wound care. Plan Continue antibiotics. Podiatry consult is pending. Patient's ultrasound arterial Doppler is negative for PAD. Dietary Evaluation Review Comments: 1) Initite Adrián @ 1 pk bid 2) Initiate multivitamin @ 1 tab qd 3) Initiate vitamin C @ 500 mg bid and zinc sulfate @ 220 mg for 7-10 days 4) Enourage optimal PO intake 5) Refer to outpatient RD for weight management 6) Continue to monitor I&O, labs, and skin integrity Expected Outcomes/Goals: 1) appetite and labs to improve 2) wounds to improve 3) f/u in 3-5 days Plan discussed with: Patient, Other MILA SHERWOOD NP August 17, 2024 07:51
[2024-08-17 08:00] LABS: Chloride 104 mmol/L (98-107); Sodium 140 mmol/L (136-145)
[2024-08-17 08:01] LABS: Anion Gap 10 (5-15); Carbon Dioxide 26 mmol/L (20-31)
[2024-08-17 08:07] LABS: Blood Urea Nitrogen 10 mg/dL (9-23); Glucose 92 mg/dL (74-106)
[2024-08-17 08:08] LABS: Potassium 3.2 mmol/L (3.5-5.1)
[2024-08-17] MEDS: POTASSIUM CHL 20 Meq TABLET PO SCH (08:58)
[2024-08-17] MEDS: LOSARTAN POTASSIUM 50 MG TAB PO SCH (08:59)
[2024-08-17] MEDS: POTASSIUM CHL 20 Meq TABLET PO ONE (13:50)
[2024-08-18 01:00] VITALS: BP 160/89; PULSE 93; RESP 18; TEMP 97.8; O2SAT 97
[2024-08-18 05:00] VITALS: BP 147/84; PULSE 80; RESP 20; TEMP 97.8; O2SAT 96
[2024-08-18 07:04] LABS: Basophils # (auto) 0.1 10 ^3/uL (0-0.2); Basophils % (auto) 0.8 % (0.0-2.0); Eosinophils # (auto) 0.3 10 ^3/uL (0-0.8); Eosinophils % (auto) 3.9 % (0.0-7.0); Hematocrit 49.8 % (41.0-53.0); Hemoglobin 17.1 g/dL (13.5-17.5); Lymphocytes # (auto) 1.5 10 ^3/uL (0.4-5.4); Lymphocytes % (auto) 23.1 % (10.0-50.0); Mean Corpuscular Hemoglobin 29.7 pg (28.0-32.0); Mean Corpuscular Hgb Conc. 34.4 g/dL (32.0-36.0); Mean Corpuscular Volume 86.4 fL (80.0-100.0); Monocytes # (auto) 0.4 10 ^3/uL (0-1.3); Monocytes % (auto) 6.7 % (0.0-12.0); Neutrophils # (auto) 4.3 10 ^3/uL (1.6-8.6); Neutrophils % (auto) 65.5 % (37.0-80.0); Nucleated Red Blood Cells % 0.4 %; Platelet Count (auto) 206 10^3/uL (140-450); Red Blood Cells 5.76 10^6/uL (4.5-5.90); Red Cell Distribution Width 13.7 % (11.8-14.3); White Blood Cell 6.6 10^3/uL (4.4-10.8)
[2024-08-18 08:45] VITALS: BP 153/107; PULSE 76; RESP 18; TEMP 98.4; O2SAT 97
[2024-08-18 11:18] LABS: Folate (Folic Acid) 41.84 ng/mL (>5.38)
--- NOTE | 2024-08-18 11:19 | DVHPN2 ---
Progress Note - Dictate Date Seen: August 18, 2024 Medical Necessity Reason Pt with a Central, PICC or Fol: No vital signs Vital Sign Date Time Temp Pulse Resp B/P (MAP) Pulse Ox O2 Delivery O2 Flow Rate FiO2 08/18/24 09:03 154/109 08/18/24 08:45 98.4 76 18 97 98.4 08/18/24 08:00 Room Air* 0 21 Total Intake and Output 08/17/24 08/17/24 08/18/24 15:00 23:00 07:00 Intake Total 658 ml 650 ml 600 ml Output Total 450 ml 1025 ml Balance 658 ml 200 ml -425 ml medications Current Medications Medications Dose Ordered Sig/Carolee Route Start Time Stop Time Status Last Admin Dose Admin Sodium Chloride 10 ml Q8HR IV 08/15/24 22:00 08/18/24 09:04 10 ML Enoxaparin Sodium 40 mg DAILY SC 08/16/24 10:00 08/18/24 09:04 40 MG Acetaminophen 650 mg Q6HP PRN PO 08/15/24 21:45 08/18/24 06:53 650 MG Saccharomyces Boulardii 250 mg BID PO 08/16/24 10:00 08/18/24 09:03 250 MG Ergocalciferol 50,000 unit Q7D PO 08/16/24 10:00 08/16/24 08:36 50,000 UNIT Losartan Potassium 50 mg DAILY PO 08/17/24 10:00 08/18/24 09:03 50 MG Pantoprazole Sodium 40 mg DAILY@0600 PO 08/16/24 06:00 08/18/24 06:52 40 MG Vancomycin HCl 0 ml @ 0 mls/hr UD IV 08/16/24 06:45 Vancomycin HCl 350 ml @ 233.333 mls/hr Q12H IV 08/16/24 14:00 08/18/24 02:52 233.333 MLS/HR Amlodipine Besylate 10 mg DAILY PO 08/16/24 13:33 08/18/24 09:02 10 MG Folic Acid 1 mg DAILY PO 08/16/24 13:32 08/18/24 09:02 1 MG Potassium Chloride 20 meq DAILY PO 08/17/24 10:00 08/18/24 09:03 20 MEQ Ampicillin Sodium/ Sulbactam Sodium 3 gm/Sodium Chloride 100 ml @ 100 mls/hr Q6H IV 08/17/24 01:15 08/18/24 07:51 100 MLS/HR objective General Appearance: alert, no distress HEENT: EOMI, PERRLA, normal external inspect of ears, no icterus, no nasal drainage Neck: no carotid bruit, no jugular venous distention (JVD), no lymphadenopathy Chest: normal thorax Respiratory: clear to auscultation, normal air movement Cardiovascular: regular rate and rhythm, no diastolic murmur, no jugular venous distention (JVD), no rub, no systolic murmur Abdominal: soft, no hepatomegaly, no mass, no splenomegaly, no tenderness Genitourinary: grossly normal external Musculoskeletal: no joint tenderness, no swelling Extremities: normal pulses, no calf tenderness, no clubbing, no cyanosis, no edema Skin: no bruising, no jaundice, no rash Neurological: alert, No focal deficit laboratory and microbiology Laboratory Tests 08/18/24 06:01 08/17/24 06:48 Test 08/17/24 06:48 Range/Units Serum Glucose 92 74-106 mg/dL Problem List 1. Bilateral lower extremity cellulitis CT of right foot, podiatry consult, wound care consult, arterial ultrasound of bilateral lower extremities 2. Morbid obesity Diet education 3. Benign essential hypertension Cardiac diet, antihypertensives 4. Nonhealing right foot wound Wound care consult, podiatry consult Assessment/Plan Subjective: Patient is awake and alert. Objective: Patient was downstairs getting MRI of his foot. Patient was seen by podiatry. Arterial Doppler is negative for PAD. Plan: Continue antibiotics. Podiatry recommendations appreciated. MRI results pending. Dietary Evaluation Review Comments: 1) Initite Adrián @ 1 pk bid 2) Initiate multivitamin @ 1 tab qd 3) Initiate vitamin C @ 500 mg bid and zinc sulfate @ 220 mg for 7-10 days 4) Enourage optimal PO intake 5) Refer to outpatient RD for weight management 6) Continue to monitor I&O, labs, and skin integrity Expected Outcomes/Goals: 1) appetite and labs to improve 2) wounds to improve 3) f/u in 3-5 days Plan discussed with: Patient, Other MILA SHERWOOD NP August 18, 2024 11:19
--- NOTE | 2024-08-18 12:34 | DVH ---
EXAM: MRI MRI R FOOT WO CONTRAST HISTORY: r/o om COMPARISON: CT CT R FOOT WO CONTRAST on DOS: 08/16/24 TECHNIQUE: Multiplanar, multisequence MRI was performed. FINDINGS: No erosive changes in the bone to suggest osteomyelitis. There are degenerative changes of the 1st metatarsal phalangeal joint. There is no soft tissue mass or abscess present Lisfranc ligament is intact. Flexor and extensor tendons are intact. IMPRESSION: 1. No signs of osteomyelitis or soft tissue abscess seenMild 2. Soft tissue swelling in the midfoot
[2024-08-18 13:05] VITALS: BP 151/104; PULSE 85; RESP 17; TEMP 98.6; O2SAT 97
[2024-08-18] MEDS: hydroCHLOROthiazide 25 MG TAB PO SCH (13:50)
--- NOTE | 2024-08-18 14:56 | DVHINCON2 ---
Date Seen: August 18, 2024 Reason for Consultation Bilateral foot leg wounds History of Present Illness Patient is 59 years old male with a past history of hypertension, left lower leg asthma came with a right foot wound for 2 weeks. Patient reported he noted right foot ulcer 2 weeks before which got worse and his home health nurse for left foot wound ask him to come to the ER. Red swollen warm tender to touch. Reported pain in the right foot attempts 10/10. On Further discussion patient reported he has left leg swelling with ulcer for last 1 year for which he has a home health nurse come check on him twice a week. Patient denied any chest pain or shortness of breath dysuria, cough or diarrhea. Lab workup revealed potassium 3.0, hemoglobin 70.6. Urinalysis negative for UTI, CXR negative for acute cardiopulmonary disease, right foot x-ray diffuse soft tissue swelling. Doppler study of the bilateral lower extremity negative for DVT. UDS negative. urinalysis negative for UTI. Past Medical History See H&P Past Surgical History See H&P Family History: Diabetes mellitus G8 MOTHER Allergies: Coded Allergies: NO KNOWN ALLERGIES (Unverified , 08/15/24) Home Meds Reported Medications Carvedilol (Coreg) 6.25 Mg Tab, 1 TAB PO BID, #180 TAB 1 Refill 08/16/24 Amlodipine Besylate (Amlodipine Besylate) 10 Mg Tab, 1 TAB PO DAILY 08/16/24 Losartan Potassium & Hydrochlo (Losartan Potassium/Hydroc) 1 Tab Tab 08/16/24 Folic Acid (Folic Acid) 1 Mg Tab, 1 TAB PO DAILY 08/16/24 Potassium Chloride (Potassium Chloride ER) 20 Meq Tab, 1 TAB PO DAILY 08/16/24 Acetaminophen (Acetaminophen Extra Stren) 500 Mg Tab, 1 TAB PO Q6HPRN PRN for PAIN SCALE 1-3 OR TEMP>100.4 08/16/24 Current Medications Current Medications Medications (Trade) Dose Ordered Sig/Carolee Route PRN Reason Start Time Stop Time Status Last Admin Losartan Potassium (Cozaar Tablet) 50 mg BID PO 08/18/24 22:00 Hydrochlorothiazide (hydroCHLOROthiazide TABLET) 25 mg DAILY PO 08/18/24 12:00 08/18/24 13:50 Vital Signs Vital Signs Date Time Temp Pulse Resp B/P (MAP) Pulse Ox O2 Delivery O2 Flow Rate FiO2 5/19/25 13:50 151/104 08/18/24 13:05 98.6 85 17 97 98.6 08/18/24 08:00 Room Air* 0 21 Physical Exam Dermatological: Skin is dry with mild erythema and some maceration around the wound site No gross deformities noted Mild non-pitting edema present bilaterally Right foot dorsal eschar and left leg multiple wounds with drainage and slough with cellulitis and edema Vascular: Dorsalis pedis and posterior tibial pulses are 1+ bilaterally Capillary refill is under 2 seconds Skin temperature is warm bilaterally Neurologic: Protective sensation is absent on the plantar forefoot bilaterally Monofilament testing reveals decreased sensation in multiple plantar sites Musculoskeletal: Range of motion at the ankle and MTP joints is within normal limits. Strength is 5/5 in all tested muscle groups. Gait is antalgic due to offloading of the affected limb. Labs/Diagnostic Data Labs Test 08/18/24 06:01 08/18/24 00:50 08/17/24 06:48 08/16/24 10:10 Range/Units White Blood Count 6.6 4.4-10.8 10^3/uL Red Blood Count 5.76 4.5-5.90 10^6/uL Hemoglobin 17.1 13.5-17.5 g/dL Hematocrit 49.8 41.0-53.0 % Mean Corpuscular Volume 86.4 80.0-100.0 fL Mean Corpuscular Hemoglobin 29.7 28.0-32.0 pg Mean Corpuscular Hemoglobin Concent 34.4 32.0-36.0 g/dL Red Cell Distribution Width 13.7 11.8-14.3 % Platelet Count 206 140-450 10^3/uL Mean Platelet Volume 8.2 6.9-10.8 fL Neutrophils (%) (Auto) 65.5 37.0-80.0 % Lymphocytes (%) (Auto) 23.1 10.0-50.0 % Monocytes (%) (Auto) 6.7 0.0-12.0 % Eosinophils (%) (Auto) 3.9 0.0-7.0 % Basophils (%) (Auto) 0.8 0.0-2.0 % Neutrophils # (Auto) 4.3 1.6-8.6 10 ^3/uL Lymphocytes # (Auto) 1.5 0.4-5.4 10 ^3/uL Monocytes # (Auto) 0.4 0-1.3 10 ^3/uL Eosinophils # (Auto) 0.3 0-0.8 10 ^3/uL Basophils # (Auto) 0.1 0-0.2 10 ^3/uL Nucleated Red Blood Cells 0.4 % Creatinine 0.78 0.700-1.30 mg/dL Glomerular Filtration Rate Calc 101 >90 mL/min Vancomycin Level Trough 16.7 H 5-10 ug/mL Sodium Level 140 136-145 mmol/L Potassium Level 3.2 L 3.5-5.1 mmol/L Chloride Level 104 98-107 mmol/L Carbon Dioxide Level 26 20-31 mmol/L Anion Gap 10 5-15 Blood Urea Nitrogen 10 9-23 mg/dL BUN/Creatinine Ratio 12.0 10.0-20.0 Serum Glucose 92 74-106 mg/dL Calcium Level 9.0 8.7-10.4 mg/dL Urine Opiates Screen Neg NEGATIVE Urine Fentanyl Screen Neg NEGATIVE Urine Barbiturates Screen Neg NEGATIVE Urine Phencyclidine Screen Neg NEGATIVE Urine Amphetamines Screen Neg NEGATIVE Urine Benzodiazepines Screen Neg NEGATIVE Urine Cocaine Screen Neg NEGATIVE Urine Cannabinoids Screen Neg NEGATIVE Test 08/16/24 05:09 08/15/24 14:47 08/15/24 14:03 08/15/24 11:40 Range/Units Total Bilirubin 0.7 0.2-1.0 mg/dL Aspartate Amino Transferase (AST) 35 13-40 U/L Alanine Aminotransferase (ALT) 25 7-40 U/L Alkaline Phosphatase 84 46-116 U/L Total Protein 6.9 5.7-8.2 g/dL Albumin 3.4 3.2-4.8 g/dL Troponin I High Sensitivity 7 </=54 ng/L Urine Color Light-yellow Yellow Urine Clarity Clear Clear Urine pH 6.5 5.0-9.0 Urine Specific Bayard 1.014 1.001-1.035 Urine Protein Negative Negative Urine Ketones Negative Negative Urine Blood Negative Negative /uL Urine Nitrite Negative Negative Urine Bilirubin Negative Negative Urine Urobilinogen Normal Negative mg/dL Urine Leukocyte Esterase Negative Negative /uL Urine RBC 3 0 - 3 /hpf Urine Microscopic WBC 1 0-3 /HPF Urine Squamous Epithelial Cells None seen <5 /hpf Urine Bacteria None seen None Seen /hpf Urine Glucose Normal Normal mg/dL Hemoglobin A1c 5.2 <5.7 % A1C Lactic Acid Level 1.5 0.4-2.0 mmol/L Magnesium Level 2.1 1.6-2.6 mg/dL B-Type Natriuretic Peptide 61.60 0-100 pg/mL Vitamin B12 Level 251 211-911 pg/mL Vitamin D 25-Hydroxy 20.6 L 30.0-100 ng/mL Folic Acid 41.84 >5.38 ng/mL Thyroid Stimulating Hormone (TSH) 3.08 0.55-4.78 uIU/mL Plasma/Serum Blood Alcohol < 3.0 <10 mg/dL Microbiology Date/Time Source Procedure Growth Status 08/15/24 11:50 Blood Blood Culture - Preliminary NO GROWTH AFTER 72 HOURS OF INCUBATION. Resulted Problems(with codes): (1) Cellulitis of right lower extremity (2) Wound of right foot Plan/Recommendation ASSESSMENT: Patient is a 59 year old seen on the floor for a worsening ulcer PLAN: - The patients chart was reviewed, clinical findings were discussed with the patient, the etiologies of the conditions were discussed in detail, and a treatment plan was agreed to at this time, with both oral and written instructions provided. - reviewed advanced imaging - discussed that patient needs to have compression to bilateral lower extremity - patient would benefit from outpatient wound care - 2 layer compression with Medihoney on the wounds - patient will need changes every other day - home health come out and change it - follow up with me 1 week after discharge All questions were answered and concerns addressed to the patient's satisfaction. The patient was given the phone number to the clinic and was told how to make contact with the clinic should any concerns or questions arise. Patient understands that if any questions or concerns arise prior to the next appointment, we should be contacted immediately. FOLLOW-UP: Continue to follow while inpatient Plan discussed with: Patient Date of Service: August 18, 2024 Billing Provider: KIP LINDA DPM Common Visit Codes: CONSULT ONLY Consultation Codes: [id number] CONSULT <80MIN KIP LINDA DPM August 18, 2024 14:56
[2024-08-18 16:37] VITALS: BP 157/77; PULSE 82; RESP 18; TEMP 98.7; O2SAT 96
[2024-08-18] MEDS: hydrALAZINE HCL 20 MG/ML VL IV PRN (17:04)
[2024-08-18 21:00] VITALS: BP 128/82; PULSE 91; RESP 20; TEMP 99.4; O2SAT 95
[2024-08-18] MEDS: LOSARTAN POTASSIUM 50 MG TAB PO SCH (21:38)
[2024-08-19 01:00] VITALS: BP 153/101; PULSE 95; RESP 19; TEMP 98.6; O2SAT 95
[2024-08-19 05:00] VITALS: BP 129/92; PULSE 78; RESP 20; TEMP 97.5; O2SAT 95
[2024-08-19 07:13] LABS: Chloride 101 mmol/L (98-107); Sodium 136 mmol/L (136-145)
[2024-08-19 07:14] LABS: Anion Gap 10 (5-15); Carbon Dioxide 25 mmol/L (20-31)
[2024-08-19 07:15] LABS: Basophils # (auto) 0.1 10 ^3/uL (0-0.2); Basophils % (auto) 0.9 % (0.0-2.0); Calcium 9.5 mg/dL (8.7-10.4); Eosinophils # (auto) 0.2 10 ^3/uL (0-0.8); Eosinophils % (auto) 3.6 % (0.0-7.0); Hematocrit 50.5 % (41.0-53.0); Hemoglobin 17.4 g/dL (13.5-17.5); Lymphocytes # (auto) 1.3 10 ^3/uL (0.4-5.4); Lymphocytes % (auto) 18.8 % (10.0-50.0); Mean Corpuscular Hemoglobin 29.6 pg (28.0-32.0); Mean Corpuscular Hgb Conc. 34.5 g/dL (32.0-36.0); Mean Corpuscular Volume 85.8 fL (80.0-100.0); Monocytes # (auto) 0.5 10 ^3/uL (0-1.3); Monocytes % (auto) 7.4 % (0.0-12.0); Neutrophils # (auto) 4.6 10 ^3/uL (1.6-8.6); Neutrophils % (auto) 69.3 % (37.0-80.0); Nucleated Red Blood Cells % 0.1 %; Platelet Count (auto) 237 10^3/uL (140-450); Red Blood Cells 5.88 10^6/uL (4.5-5.90); Red Cell Distribution Width 13.7 % (11.8-14.3); White Blood Cell 6.7 10^3/uL (4.4-10.8)
[2024-08-19 07:19] LABS: Glucose 102 mg/dL (74-106)
[2024-08-19 07:20] LABS: BUN/Creatinine Ratio 10.5 (10.0-20.0); Blood Urea Nitrogen 9 mg/dL (9-23); Magnesium 2.2 mg/dL (1.6-2.6)
[2024-08-19 08:24] VITALS: BP 150/90; PULSE 84; RESP 22; TEMP 98; O2SAT 97
[2024-08-19] MEDS ORDERED: HYDR50TA47 PO (10:49)
[2024-08-19] MEDS ORDERED: HYDR25TA5 PO (10:49)
[2024-08-19] MEDS ORDERED: LOSA-534 PO (10:49)
[2024-08-19] MEDS ORDERED: AUG875T PO (10:50)
--- NOTE | 2024-08-19 10:51 | DVHDS2 ---
Discharge Summary Date of Admission August 15, 2024 at 21:35 Date of Discharge: August 19, 2024 Labs/Diagnostic Data: Laboratory Results Test 08/19/24 06:30 08/18/24 00:50 08/16/24 10:10 08/16/24 05:09 White Blood Count 6.7 10^3/uL (4.4-10.8) Red Blood Count 5.88 10^6/uL (4.5-5.90) Hemoglobin 17.4 g/dL (13.5-17.5) Hematocrit 50.5 % (41.0-53.0) Mean Corpuscular Volume 85.8 fL (80.0-100.0) Mean Corpuscular Hemoglobin 29.6 pg (28.0-32.0) Mean Corpuscular Hemoglobin Concent 34.5 g/dL (32.0-36.0) Red Cell Distribution Width 13.7 % (11.8-14.3) Platelet Count 237 10^3/uL (140-450) Mean Platelet Volume 8.1 fL (6.9-10.8) Neutrophils (%) (Auto) 69.3 % (37.0-80.0) Lymphocytes (%) (Auto) 18.8 % (10.0-50.0) Monocytes (%) (Auto) 7.4 % (0.0-12.0) Eosinophils (%) (Auto) 3.6 % (0.0-7.0) Basophils (%) (Auto) 0.9 % (0.0-2.0) Neutrophils # (Auto) 4.6 10 ^3/uL (1.6-8.6) Lymphocytes # (Auto) 1.3 10 ^3/uL (0.4-5.4) Monocytes # (Auto) 0.5 10 ^3/uL (0-1.3) Eosinophils # (Auto) 0.2 10 ^3/uL (0-0.8) Basophils # (Auto) 0.1 10 ^3/uL (0-0.2) Nucleated Red Blood Cells 0.1 % Sodium Level 136 mmol/L (136-145) Potassium Level 3.0 mmol/L (3.5-5.1) Chloride Level 101 mmol/L (98-107) Carbon Dioxide Level 25 mmol/L (20-31) Anion Gap 10 (5-15) Blood Urea Nitrogen 9 mg/dL (9-23) Creatinine 0.86 mg/dL (0.700-1.30) Glomerular Filtration Rate Calc 99 mL/min (>90) BUN/Creatinine Ratio 10.5 (10.0-20.0) Serum Glucose 102 mg/dL (74-106) Calcium Level 9.5 mg/dL (8.7-10.4) Magnesium Level 2.2 mg/dL (1.6-2.6) Vancomycin Level Trough 16.7 ug/mL (5-10) Urine Opiates Screen Neg (NEGATIVE) Urine Fentanyl Screen Neg (NEGATIVE) Urine Barbiturates Screen Neg (NEGATIVE) Urine Phencyclidine Screen Neg (NEGATIVE) Urine Amphetamines Screen Neg (NEGATIVE) Urine Benzodiazepines Screen Neg (NEGATIVE) Urine Cocaine Screen Neg (NEGATIVE) Urine Cannabinoids Screen Neg (NEGATIVE) Total Bilirubin 0.7 mg/dL (0.2-1.0) Aspartate Amino Transferase (AST) 35 U/L (13-40) Alanine Aminotransferase (ALT) 25 U/L (7-40) Alkaline Phosphatase 84 U/L (46-116) Total Protein 6.9 g/dL (5.7-8.2) Albumin 3.4 g/dL (3.2-4.8) Test 08/15/24 14:47 08/15/24 14:03 08/15/24 11:40 Troponin I High Sensitivity 7 ng/L (</=54) Urine Color Light-yellow (Yellow) Urine Clarity Clear (Clear) Urine pH 6.5 (5.0-9.0) Urine Specific [place] 1.014 (1.001-1.035) Urine Protein Negative (Negative) Urine Ketones Negative (Negative) Urine Blood Negative /uL (Negative) Urine Nitrite Negative (Negative) Urine Bilirubin Negative (Negative) Urine Urobilinogen Normal mg/dL (Negative) Urine Leukocyte Esterase Negative /uL (Negative) Urine RBC 3 /hpf (0 - 3) Urine Microscopic WBC 1 /HPF (0-3) Urine Squamous Epithelial Cells None seen /hpf (<5) Urine Bacteria None seen /hpf (None Seen) Urine Glucose Normal mg/dL (Normal) Hemoglobin A1c 5.2 % A1C (<5.7) Lactic Acid Level 1.5 mmol/L (0.4-2.0) B-Type Natriuretic Peptide 61.60 pg/mL (0-100) Vitamin B12 Level 251 pg/mL (211-911) Vitamin D 25-Hydroxy 20.6 ng/mL (30.0-100) Folic Acid 41.84 ng/mL (>5.38) Thyroid Stimulating Hormone (TSH) 3.08 uIU/mL (0.55-4.78) Plasma/Serum Blood Alcohol < 3.0 mg/dL (<10) Other Laboratory Tests 08/19/24 06:30 Brief Hx & Hospital Course: Patient is 59 years old male with a past history of hypertension, left lower leg asthma came with a right foot wound for 2 weeks. Patient reported he noted right foot ulcer 2 weeks before which got worse and his home health nurse for left foot wound ask him to come to the ER. Red swollen warm tender to touch. Reported pain in the right foot attempts 10/10. On Further discussion patient reported he has left leg swelling with ulcer for last 1 year for which he has a home health nurse come check on him twice a week. Patient denied any chest pain or shortness of breath dysuria, cough or diarrhea. Lab workup revealed potassium 3.0, hemoglobin 70.6. Urinalysis negative for UTI, CXR negative for acute cardiopulmonary disease, right foot x-ray diffuse soft tissue swelling. Doppler study of the bilateral lower extremity negative for DVT. UDS negative. urinalysis negative for UTI. While in the emergency department the patient was evaluated by the provider, As per provider: Labs, vital signs, and imagining monitored. Patient was admitted on August 15, 2024 for non-healing wounds to his right foot and left. Patient had a worsening right foot ulcer to the right. Patient is not a diabetic. Patient states he's had the wounds for one year. There was a strong odor. Patient was seen by phototypesetting equipment monitor. MRI of the right foot did not show any osteomyelitis, however, it did show cellulitis. Patient will discharge home on oral antibiotics. Home health was arranged to assist with daily wound care, and he was instructed to follow up with research advisor, Doctor Flores outpatient. There were no complaints or new complaints upon discharge, all questions and concerns were answered. Patient was advised to return to the ER or call 911 if any headaches, dizziness, shortness of breath, chest pain, bleeding, fevers, or worsening of medical condition. Patient/Family was counseled about treatment plan, medications, possible side effects, patientverbalized understanding. All questions were answered to the best of my ability. The patient symptoms improved and they are okay to be DC. Condition at Discharge: Stable Final Diagnosis/Problems List right foot ulcer, non healing Bilateral lower extremity cellulitis Morbid obesity Benign essential hypertension Discharge Disposition: Home with Health Services Discharge Instruct/Medications Diet: Consistent carbohydrate, Cardiac 2g Na,low cholest Activity: See Comment Activity comment: off load affected foot Follow Up/Referral: pcp darrion 1 week Discharge Statement: "Patient was advised to return to the ER or call 911 if any headaches, dizziness, shortness of breath, chest pain, abdominal pain, bleeding, fevers, or worsening of medical condition. Patient was counseled about treatment plan, medications, possible side effects, patientverbalized understanding. All questions were answered to the best of my ability. This discharge took greater then 30 minutes in planning, reviewing documentation, counseling the patient, and discussing with other team members." ASSESSMENT ASSESSMENT Assessment right foot ulcer, non healing MILA SHERWOOD NP August 19, 2024 10:51
[2024-08-19 11:11] VITALS: BP 150/90; TEMP 36.7
[2024-08-19 12:49] VITALS: BP 165/75; PULSE 74; RESP 17; TEMP 97.6; O2SAT 96
== END 2024-08-19 13:32 | disposition home health service (06) | DRG 603 ==
LOC: ER 10:53 → OVERFLOW 21:35 → WEST WING 23:42
PROVIDERS: ADMIT Nurse Practitioner; ATTEND Nurse Practitioner
DX: L03.115 Cellulitis of right lower limb (principal); L97.929 Non-pressure chronic ulcer of unspecified part of left lower leg with unspecified severity; L97.919 Non-pressure chronic ulcer of unspecified part of right lower leg with unspecified severity; Z68.42 Body mass index [BMI] 45.0-49.9, adult; J45.909 Unspecified asthma, uncomplicated; S91.301A Unspecified open wound, right foot, initial encounter; X58.XXXA Exposure to other specified factors, initial encounter; L03.116 Cellulitis of left lower limb; E55.9 Vitamin D deficiency, unspecified; E66.01 Morbid (severe) obesity due to excess calories; I10 Essential (primary) hypertension; E87.6 Hypokalemia; Z79.899 Other long term (current) drug therapy; Z83.3 Family history of diabetes mellitus; Z79.1 Long term (current) use of non-steroidal anti-inflammatories (NSAID); Y93.89 Activity, other specified; Y92.89 Other specified places as the place of occurrence of the external cause; Y99.8 Other external cause status
CPT/HCPCS: 36415; 71045; 73630; 73700; 73718; 80048; 80053; 80202; 80307; 80320; 81001; 82306; 82565; 82607; 82746; 83036; 83605; 83735; 83880; 84443; 84484; 85025; 87040; 93306; 93925; 93970; 96365; 96375; 99291; G0378; J0692; J2405; J3490